=== PATIENT | male | born 1975 | race Caucasian/White ===

== ENCOUNTER 2019-05-28 22:49 | Emergency (ER) | payer SELFPAY ==
[~2019-05-28] VITALS: Ht 177.8 cm; Wt 81.8 kg
[2019-05-28 22:57] VITALS: BP 132/69; TEMP 98.7
[2019-05-28 23:24] LABS: BASO # 0.1 (0.0-0.2); BASO % 0.4 % (0.0-2.0); EOS # 0.2 (0.0-0.7); EOS % 1.2 % (0-4.0); GRAN # 8.7 (1.4-6.5); GRAN % 66.8 % (42.2-75.2); HEMATOCRIT 40.8 % (42.0-52.0); HEMOGLOBIN 13.9 g/dl (13.5-18.0); LYMPH # 2.6 (1.2-3.4); LYMPH % 19.8 % (20.0-51.0); MEAN CELL VOLUME 86 fl (80.0-100.0); MEAN CORPUSCULAR HEMOGLOBIN 29 pg (27.0-31.0); MEAN CORPUSCULAR HGB CONC 34 g/dl (33.0-37.0); MEAN PLATELET VOLUME 9.4 fl (7.4-10.4); MONO # 1.5 (0.1-0.6); MONO % 11.2 % (1.7-9.3); PLATELET COUNT 309 K/mm3 (130-400); RED BLOOD COUNT 4.73 M/mm3 (4.20-5.60); REDCELL DISTRIBUTION WIDTH-CV 13.8 % (11.5-14.5)
[2019-05-28 23:36] LABS: ALANINE AMINOTRANSFERASE 30 U/L (21-72); ALBUMIN 4.4 gm/dL (3.5-5.0); ALKALINE PHOSPHATASE 100 U/L (50-136); ANION GAP 9 mmol/L (7-16); AST,SGOT 33 U/L (15-37); BILIRUBIN,TOTAL 0.7 mg/dL (0.0-1.0); BLOOD UREA NITROGEN 16 mg/dL (9-20); CALCIUM 9.8 mg/dL (8.4-10.2); CARBON DIOXIDE 30 mmol/L (22-30); CHLORIDE 99 mmol/L (98-107); CREATININE, serum 0.85 (0.66-1.25); GLUCOSE 95 mg/dL (74-106); LIPASE 36 U/L (23-300); POTASSIUM 4.4 mmol/L (3.4-5.0); SODIUM 139 mmol/L (137-145); TOTAL PROTEIN 7.8 gm/dL (6.4-8.2)
[2019-05-28 23:45] LABS: TROPONIN-I < 0.012 ng/mL (0.000-0.035)
[2019-05-29 00:23] LABS: COLLECTION METHOD CLEAN CATCH
[2019-05-29 00:35] LABS: AMORPHOUS CRYSTAL Present /uL; PH 7 (5-8); SQUAMOUS EPITHELIAL None Seen /hpf; URINE APPEARANCE Cloudy; URINE BACTERIA None Seen /hpf; URINE BILIRUBIN Negative (NEGATIVE); URINE BLOOD Negative (NEGATIVE); URINE COLOR Yellow; URINE GLUCOSE Negative (NEGATIVE); URINE KETONE Negative (NEGATIVE); URINE LEUKOCYTE ESTERASE Negative (NEGATIVE); URINE NITRATE Negative (NEGATIVE); URINE PROTEIN(semi-quant) Negative (NEGATIVE); URINE RBC 0-2 /hpf; URINE UROBILINOGEN Negative (NEGATIVE)
[2019-05-29] MEDS ORDERED: NORCO 325 MG-51 TAB PO (02:33)
[2019-05-29] MEDS ORDERED: LEVAQUIN 750MG750 M1 PO (02:33)
[2019-05-29 04:00] VITALS: PULSE 89
== END 2019-05-29 04:00 | disposition home or self-care (01) ==
LOC: COL.ER 22:49
PROVIDERS: Emergency Medicine
DX: K59.00 Constipation, unspecified (principal); J18.9 Pneumonia, unspecified organism; F17.210 Nicotine dependence, cigarettes, uncomplicated
CPT/HCPCS: J1170; J1956; J7030; Q9967

== ENCOUNTER → 2019-05-30 | Outpatient (CLI) | payer SELFPAY ==
[~2019-05-30] MED LIST: LEVAQUIN 750MG750 M1 PO; NORCO 325 MG-51 TAB PO
== END ==
LOC: COL.RAD 09:52
DX: J90 Pleural effusion, not elsewhere classified (principal); R10.11 Right upper quadrant pain